=== PATIENT | female | born 1970 | race Caucasian/White ===

== ENCOUNTER 2016-12-22 14:42 | Emergency (ER) | payer OTHER ==
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
[2016-12-22 15:01] VITALS: TEMP 98.6; O2SAT 100; BMI 27.4
[2016-12-22 15:51] VITALS: BP 119/80; PULSE 89; RESP 16
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
== END 2016-12-22 16:08 | disposition home or self-care (01) ==
LOC: ED 14:42
DX: S80.11XA Contusion of right lower leg, initial encounter (principal); V49.49XA Driver injured in collision with other motor vehicles in traffic accident, initial encounter; Y92.410 Unspecified street and highway as the place of occurrence of the external cause